=== PATIENT | female | born 1940 | race Caucasian/White ===

== ENCOUNTER 2016-10-07 10:57 | Emergency (ER) | payer MEDICARE ==
[2016-10-07 11:01] VITALS: BP 148/65
[2016-10-07] MEDS ORDERED: DOXYcycline CAP(*) 100 MG PO ONE (12:09)
--- NOTE | 2016-10-07 12:14 | ED ---
Bite Injury/Animal - HPI Summary HPI Summary: Patient presents with a tick on her mid back. She thinks it must have become attached yesterday [place] She noticed today when she got dressed and then her saw that it was engorged. She has mild redness on her back. No drainage or streaking. - History of Current Complaint Chief Complaint: EDGeneral Stated Complaint: TICK Time Seen by Provider: 10/07/16 11:02 Hx Obtained From: Patient, Family/Saw Maker Onset of Injury: Happened hours ago Type of Bite: Wild Animal - tick Hx of Bite: Unprovoked Severity Currently: Mild Pain Intensity: 0 Aggravating Factor(s): Nothing Alleviating Factor(s): Nothing Associated Signs And Symptoms: Positive: Negative - Risk Factors Infection/Sepsis Risk Factors: Negative - Allergies/Home Medications Allergies/Adverse Reactions: Allergies Allergy/AdvReac Type Severity Reaction Status Date / Time Codeine AdvReac Intermediate nausea, Verified 10/07/16 11:27 stomach upset PMH/Surg Hx/FS Hx/Imm Hx Endocrine/Hematology History: Denies: Hx Diabetes - no active or history, Other Endocrine/Hematological Disorders - Pt. does not have DM, previous entry in error Cardiovascular History: Reports: Hx Angina Denies: Hx Coronary Artery Disease, Hx Hypercholesterolemia, Hx Hypertension , Hx Myocardial Infarction, Hx Valvular Heart Disease Respiratory History: Denies: Hx Asthma, Hx Chronic Obstructive Pulmonary Disease (COPD) Sensory History: Reports: Hx Contacts or Glasses Opthamlomology History: Reports: Hx Contacts or Glasses - Cancer History Hx Chemotherapy: No Hx Radiation Therapy: No - Surgical History Surgery Procedure, Year, and Place: tonsillectomy. tubal ligation. hysterectomy Infectious Disease History: No Infectious Disease History: Denies: Traveled Outside the [place] in Last 30 Days - Family History Known Family History: Positive: None - Social History Occupation: Retired Lives: With Family Alcohol Use: None Substance Use Type: Reports: None Smoking Status (MU): Never Smoked Tobacco Review of Systems Positive: Other - pea size are of erythema with embedded tick All Other Systems Reviewed And Are Negative: Yes Physical Exam Triage Information Reviewed: Yes Vital Signs On Initial Exam: Initial Vitals Temp Pulse Resp BP Pulse Ox 98.2 F 69 18 148/65 99 10/07/16 10:59 10/07/16 10:59 10/07/16 10:59 10/07/16 10:59 10/07/16 10:59 Vital Signs Reviewed: Yes Appearance: Positive: Well-Appearing, No Pain Distress, Thin Skin: Positive: Warm, Skin Color Reflects Adequate Perfusion, Dry, Tender, Soft , Erythema @ - pea size area of erthema with embedded tick that is minimally engorged. Head/Face: Positive: Normal Head/Face Inspection Eyes: Positive: EOMI, TOREY, Conjunctiva Clear ENT: Positive: Hearing grossly normal Respiratory/Lung Sounds: Positive: Breath Sounds Present Cardiovascular: Positive: RRR Musculoskeletal: Negative: Edema Left, Edema Right Neurological: Positive: Sensory/Motor Intact, Alert, Oriented to Person Place, Time, NV Bundle Intact Distally, Normal Gait Psychiatric: Positive: Affect/Mood Appropriate AVPU Assessment: Alert Procedures - Procedure Summary Procedure Summary: The tick was grasped with tweezers, and twisted in a circular direction until it released intact. Patient tolerated well. Diagnostics - Vital Signs Vital Signs Temp Pulse Resp BP Pulse Ox 10/07/16 11:25 98.2 F 69 18 148/65 99 10/07/16 10:59 98.2 F 69 18 148/65 99 - Laboratory Lab Statement: Any lab studies that have been ordered have been reviewed, and results considered in the medical decision making process. Bite Injury Course/Dx - Diagnoses Differential Diagnosis/HQI/PQRI: Positive: Envenomation, Puncture, Superficial Infection, Other Provider Diagnosis: Tick bite of back Discharge - Discharge Plan Condition: Stable Disposition: HOME Patient Education Materials: Tick Bite (ED), Lyme Disease (ED) Referrals: Ruben Caldera MD [Primary Care Provider] - Additional Instructions: Please follow-up with your primary care provider if symptoms begin. Return to the emergency department as needed.
== END 2016-10-07 12:29 | disposition home or self-care (01) ==
LOC: ED 10:57
DX: S20.469A Insect bite (nonvenomous) of unspecified back wall of thorax, initial encounter (principal); W57.XXXA Bitten or stung by nonvenomous insect and other nonvenomous arthropods, initial encounter; Y93.9 Activity, unspecified; Y92.9 Unspecified place or not applicable; Y99.9 Unspecified external cause status
CPT/HCPCS: 99281; A9270-GY

== ENCOUNTER 2016-11-15 17:22 | Emergency (ER) | payer MEDICARE ==
[2016-11-15 17:34] VITALS: BP 141/74
--- NOTE | 2016-11-15 18:01 | UC ---
Skin Complaint HPI - HPI Summary HPI Summary: Patient presents to with erythematous area over the left dorsum of the upper forearm. She states she sustained an insect bite yesterday and has been itching the area. Denies pruritis currently. The area is blanchable with small red blood vessels surrounding without warmth or cellulitis and area is not well demarcated. Area seems to be a localized reaction of breaks in the skin from itching. Denies health problems. - History of Current Complaint Chief Complaint: UCSkin Time Seen by Provider: 11/15/16 17:36 Stated Complaint: BUG BITE Hx Obtained From: Patient ?: No Onset/Duration: Sudden Onset Skin Exposure Onset/Duration: Hours Ago Timing: Constant Onset Severity: Mild Current Severity: Mild Pain Intensity: 0 Pain Scale Used: 0-10 Numeric Location: Discrete Character: Redness Aggravating: Nothing Alleviating: Nothing Associated Signs & Symptoms: Positive: Nausea Related History: Possible Reaction to: Insect - Allergy/Home Medications Allergies/Adverse Reactions: Allergies Allergy/AdvReac Type Severity Reaction Status Date / Time Codeine AdvReac Intermediate nausea, Verified 11/15/16 17:34 stomach upset Home Medications: Home Medications NK [No Home Medications Reported] 11/15/16 [History Confirmed 11/15/16] Review of Systems Constitutional: Negative Skin: Other - blanchable 3X3 erythematous area over dorsum of the upper forearm without pruritis or warmth ENT: Negative Respiratory: Negative Cardiovascular: Negative Neurovascular: Negative Musculoskeletal: Negative Neurological: Negative Psychological: Negative All Other Systems Reviewed And Are Negative: Yes PMH/Surg Hx/FS Hx/Imm Hx Previously Healthy: Yes - Surgical History Surgical History: Yes Surgery Procedure, Year, and Place: tonsillectomy. tubal ligation. hysterectomy - Family History Known Family History: Positive: None - Social History Occupation: Retired Lives: With Family Alcohol Use: Rare Substance Use Type: None Smoking Status (MU): Never Smoked Tobacco Have You Smoked in the Last Year: No - Immunization History Most Recent Influenza Vaccination: 02/2013 Most Recent Tetanus Shot: 04/05/13 Most Recent Pneumonia Vaccination: <10yrs ago Physical Exam Triage Information Reviewed: Yes Appearance: Well-Appearing, No Pain Distress, Well-Nourished Vital Signs: Initial Vital Signs Temp 97.8 F 11/15/16 17:30 Pulse 56 11/15/16 17:30 Resp 18 11/15/16 17:30 BP 141/74 11/15/16 17:30 Pulse Ox 100 11/15/16 17:30 Vital Signs Reviewed: Yes Eye Exam: Normal Eyes: Positive: Conjunctiva Clear Neck exam: Normal Neck: Positive: Supple, No Lymphadenopathy Respiratory Exam: Normal Respiratory: Positive: Chest non-tender Cardiovascular Exam: Normal Cardiovascular: Positive: RRR Musculoskeletal Exam: Normal Musculoskeletal: Positive: Strength Intact Neurological Exam: Normal Neurological: Positive: Alert Psychological: Positive: Normal Response To Family Skin: Positive: Other - blanchable 3X3 erythematous area over dorsum of the upper forearm without pruritis or warmth Course/Dx - Course Course Of Treatment: blanchable 3X3 erythematous area over dorsum of the upper forearm without pruritis or warmth. Likely a localized reaction from itching the area previously and breaking blood vessels under the skin. Treatment options discussed. Patient OK with discharge and agrees with plan. - Differential Diagnoses - Skin Complaint Differential Diagnoses: Contact Dermatitis, Drug Rash, Poison Fleischmanns, Urticaria - Diagnoses Provider Diagnoses: Broken Blood Vessels Discharge - Discharge Plan Condition: Stable Disposition: HOME Patient Education Materials: Cellulitis (ED) Referrals: Ruben Caldera MD [Primary Care Provider] - Additional Instructions: I am not diagnosing you with cellulitis (skin infection) - just want you to have information. Return if you have streaking, warmth or wrosening redness around the wound.
== END 2016-11-15 18:05 | disposition home or self-care (01) ==
LOC: UCEAST 17:22
DX: S55.20 Unspecified injury of vein at forearm level (principal); X58.XXXA Exposure to other specified factors, initial encounter
CPT/HCPCS: 99211; G0463

== ENCOUNTER 2017-04-16 11:14 | Emergency (ER) | payer MEDICARE ==
[2017-04-16 13:09] VITALS: BP 156/68
[2017-04-16] MEDS ORDERED: DOXYcycline CAP(*) 100 MG PO ONE (13:52)
--- NOTE | 2017-04-16 13:52 | UC ---
Skin Complaint HPI - HPI Summary HPI Summary: Tick on center of chest ---has been there for at least 24 hours - History of Current Complaint Chief Complaint: UCSkin Time Seen by Provider: 04/16/17 13:38 Stated Complaint: TICK BITE Hx Obtained From: Patient ?: No Onset/Duration: Sudden Onset, Lasting Days - 1, Still Present Skin Exposure Onset/Duration: Days Ago - 1-2 Timing: Constant Onset Severity: Mild Current Severity: Mild Location: Discrete Aggravating Factor(s): Nothing Alleviating Factor(s): Nothing Associated Signs & Symptoms: Positive: Negative Related History: Insect Bite/Sting - Allergy/Home Medications Allergies/Adverse Reactions: Allergies Allergy/AdvReac Type Severity Reaction Status Date / Time Codeine AdvReac Intermediate nausea, Verified 04/16/17 11:22 stomach upset Review of Systems Constitutional: Negative Skin: Rash - slight erythma around tick Eyes: Negative ENT: Negative Respiratory: Negative Cardiovascular: Negative Gastrointestinal: Negative Genitourinary: Negative Motor: Negative Neurovascular: Negative Musculoskeletal: Negative Neurological: Negative Psychological: Negative Is Patient Immunocompromised?: No All Other Systems Reviewed And Are Negative: Yes PMH/Surg Hx/FS Hx/Imm Hx Previously Healthy: Yes - Surgical History Surgical History: Yes Surgery Procedure, Year, and Place: tonsillectomy. tubal ligation. hysterectomy - Family History Known Family History: Positive: None - Social History Occupation: Retired Lives: With Family Alcohol Use: Rare Substance Use Type: None Smoking Status (MU): Never Smoked Tobacco Have You Smoked in the Last Year: No - Immunization History Most Recent Influenza Vaccination: 1017 Most Recent Tetanus Shot: 04/05/13 Most Recent Pneumonia Vaccination: <10yrs ago Physical Exam Triage Information Reviewed: Yes Appearance: Well-Appearing, No Pain Distress, Well-Nourished Vital Signs: Initial Vital Signs Temp 98.7 F 04/16/17 11:19 Pulse 67 04/16/17 11:19 Resp 16 04/16/17 11:19 BP 130/58 04/16/17 11:19 Pulse Ox 100 04/16/17 11:19 Vital Signs Reviewed: Yes Eye Exam: Normal Eyes: Positive: Conjunctiva Clear ENT Exam: Normal ENT: Positive: Normal ENT inspection, Hearing grossly normal, Pharynx normal. Negative: Trismus, Muffled voice, Hoarse voice Dental Exam: Normal Neck exam: Normal Neck: Positive: Supple, Nontender, No Lymphadenopathy Respiratory Exam: Normal Respiratory: Positive: Chest non-tender, No respiratory distress, No accessory muscle use Cardiovascular Exam: Normal Cardiovascular: Positive: RRR, Pulses Normal, Brisk Capillary Refill Musculoskeletal Exam: Normal Musculoskeletal: Positive: Strength Intact, ROM Intact, No Edema Neurological Exam: Normal Neurological: Positive: Alert, Muscle Tone Normal Psychological Exam: Normal Skin Exam: Normal Skin: Positive: Other - Slight erythema around tick Re-Evaluation - Re-Evaluation First Eval Change: Improved - Tick removed alive and intact Course/Dx - Course Course Of Treatment: gentle soap and water wash, doxycycline times one dose now follow Blood pressure with pcp - Diagnoses Provider Diagnoses: Elevated Blood pressure with out diagnosis of hypertension, Tick removal with Lyme PEP Discharge - Discharge Plan Condition: Stable Disposition: HOME Patient Education Materials: Tick Bite (ED), Hypertension (ED) Referrals: Ruben Caldera MD [Primary Care Provider] - 2 Weeks
== END 2017-04-16 14:00 | disposition home or self-care (01) ==
LOC: UCEAST 11:14
DX: S20.369A Insect bite (nonvenomous) of unspecified front wall of thorax, initial encounter (principal); W57.XXXA Bitten or stung by nonvenomous insect and other nonvenomous arthropods, initial encounter; Y93.9 Activity, unspecified; Y92.9 Unspecified place or not applicable; Y99.9 Unspecified external cause status; R03.0 Elevated blood-pressure reading, without diagnosis of hypertension
CPT/HCPCS: 99212; A9270-GY; G0463

== ENCOUNTER 2017-06-22 14:03 | Emergency (ER) | payer MEDICARE ==
[2017-06-22 14:29] VITALS: BP 124/61
[2017-06-22] MEDS ORDERED: DOXYcycline CAP(*) 100 MG PO ONE (15:53)
--- NOTE | 2017-06-22 15:53 | UC ---
Skin Complaint HPI - HPI Summary HPI Summary: Patient presents with an unremarkable past medical history. She states she woke up with morning and found a round red smooth area on her left lower leg. SHe denies any tick , it is not itchy, or painful. She comes in for evaluation. It is approximate 1.5 cm in diameter. She offers no other concerns or complaints. - History of Current Complaint Chief Complaint: UCLowerExtremity Time Seen by Provider: 06/22/17 15:38 Stated Complaint: INSECT BITE Hx Obtained From: Patient Onset/Duration: Sudden Onset, Lasting Hours Skin Exposure Onset/Duration: Hours Ago Timing: Constant Pain Intensity: 0 Location: Discrete - lle Aggravating Factor(s): Nothing Alleviating Factor(s): Nothing Associated Signs & Symptoms: Positive: Negative - Allergy/Home Medications Allergies/Adverse Reactions: Allergies Allergy/AdvReac Type Severity Reaction Status Date / Time MS Codeine [Codeine] AdvReac Intermediate nausea, Verified 04/16/17 11:22 stomach upset Review of Systems Constitutional: Negative Skin: Negative Eyes: Negative ENT: Negative Respiratory: Negative Cardiovascular: Negative Gastrointestinal: Negative Genitourinary: Negative Motor: Negative Neurovascular: Negative Musculoskeletal: Negative Neurological: Negative Psychological: Negative Is Patient Immunocompromised?: No All Other Systems Reviewed And Are Negative: Yes PMH/Surg Hx/FS Hx/Imm Hx Previously Healthy: Yes - Surgical History Surgical History: Yes Surgery Procedure, Year, and Place: tonsillectomy. tubal ligation. hysterectomy - Family History Known Family History: Positive: None - Social History Occupation: Retired Lives: With Family Alcohol Use: Rare Substance Use Type: None Smoking Status (MU): Never Smoked Tobacco Have You Smoked in the Last Year: No - Immunization History Most Recent Influenza Vaccination: 1017 Most Recent Tetanus Shot: 04/05/13 Most Recent Pneumonia Vaccination: <10yrs ago Physical Exam Triage Information Reviewed: Yes Appearance: Well-Appearing Vital Signs: Initial Vital Signs Temp 97.8 F 06/22/17 14:25 Pulse 71 06/22/17 14:25 Resp 16 06/22/17 14:25 BP 124/61 06/22/17 14:25 Pulse Ox 100 06/22/17 14:25 Vital Signs Reviewed: Yes Eye Exam: Normal ENT Exam: Normal Neck exam: Normal Neck: Positive: 1 Respiratory Exam: Normal Cardiovascular Exam: Normal Abdominal Exam: Normal Musculoskeletal Exam: Normal Neurological Exam: Normal Psychological Exam: Normal Skin Exam: Other - 1.5 cm macular circular area on the LLE, no foreign body present, no tick bite. nontender, without visicle. Course/Dx - Course Course Of Treatment: Patient presents with a round red macular blanchable area on her leg. No tick bite, no evidence of vesicles, and it is not painful. This most likley is a spider bite, but it is not infected at this time. There is no flucuance, or indurations. the patient will be tra[facility]leing to [facility] tom[facility]rw therefore I have RC antibiotics for her to take in case it starts to show signs of infection. I also told her that she could trial a course of hyrocortisone cream and see if that helps. I also told her that is it begins to look worse to start the antibiotics and seek re-evaluations. In addition erring on the side of caution I gave doxy 200 mg one time in the department as it does resemble a tick bite. She verbalized understanding of and in agreement with the discharge plan. - Differential Diagnoses - Skin Complaint Differential Diagnoses: Other - insect bite - Diagnoses Provider Diagnoses: insect bite Discharge - Discharge Plan Condition: Stable Disposition: HOME Prescriptions: Cephalexin CAP* [Keflex CAP*] 500 mg PO QID #40 cap Patient Education Materials: Insect Bite or Sting (ED) Referrals: Ruben Caldera MD [Primary Care Provider] -
== END 2017-06-22 16:00 | disposition home or self-care (01) ==
LOC: UCEAST 14:03
DX: S80.862A Insect bite (nonvenomous), left lower leg, initial encounter (principal); W57.XXXA Bitten or stung by nonvenomous insect and other nonvenomous arthropods, initial encounter; Y92.9 Unspecified place or not applicable
CPT/HCPCS: 99212; A9270-GY; G0463

== ENCOUNTER 2017-08-21 09:43 | Emergency (ER) | payer MEDICARE ==
[2017-08-21 09:53] VITALS: BP 137/61
--- NOTE | 2017-08-21 10:08 | UC ---
Eye Complaint HPI - History of Current Complaint Chief Complaint: Carlito Stated Complaint: EYE IRRITATION Time Seen by Provider: 08/21/17 10:00 Hx Obtained From: Patient Timing: Days Severity Initially: Mild Severity Currently: Moderate Pain Intensity: 0 Location of Injury: Eye Lid (lower), Periorbital Character: Dull Aggravating Factor(s): Nothing Alleviating Factor(s): Nothing - Risk Factors Penetrating Injury Risk Factor: Negative Globe Rupture Risk Factors: Negative Acute Glaucoma Risk Factors: Negative Optic Artery Occlusion Risk Factors: Negative - Allergies/Home Medications Allergies/Adverse Reactions: Allergies Allergy/AdvReac Type Severity Reaction Status Date / Time codeine Allergy stomach Verified 08/21/17 09:44 upset PMH/Surg Hx/FS Hx/Imm Hx Previously Healthy: Yes - Surgical History Surgical History: Yes Surgery Procedure, Year, and Place: tonsillectomy. tubal ligation. hysterectomy - Family History Known Family History: Positive: None - Social History Alcohol Use: Rare Substance Use Type: None Smoking Status (MU): Never Smoked Tobacco Have You Smoked in the Last Year: No - Immunization History Most Recent Influenza Vaccination: 1017 Most Recent Tetanus Shot: 04/05/13 Most Recent Pneumonia Vaccination: <10yrs ago Review of Systems Eyes: Other - eyelid redness All Other Systems Reviewed And Are Negative: Yes Physical Exam Triage Information Reviewed: Yes Appearance: Well-Appearing, No Pain Distress, Well-Nourished Vital Signs: Initial Vital Signs Temp 97 F 08/21/17 09:50 Pulse 76 08/21/17 09:50 Resp 16 08/21/17 09:50 BP 137/61 08/21/17 09:50 Pulse Ox 100 08/21/17 09:50 Vital Signs Reviewed: Yes Eyes: Positive: Conjunctiva Clear, Other: - mild soft tissue swelling and erythema on lower right eyelid. ANA, no conjunctival injection, no eye discharge ENT: Positive: Pharynx normal, TMs normal, Uvula midline Neck: Positive: Supple, Nontender, No Lymphadenopathy Respiratory: Positive: Chest non-tender, Lungs clear, Normal breath sounds Cardiovascular: Positive: RRR, No Murmur, Pulses Normal, Brisk Capillary Refill Eye Complaint Course/Dx - Course Course Of Treatment: start medications as prescribed, hand hygiene, oral hydration, follow up with PCP, return if antibiotics do not produce improvement of symptoms within 24-36 hr - Differential Dx/Diagnosis Provider Diagnoses: Cellulitis lower eyelid Discharge - Sign-Out/Discharge Documenting (check all that apply): Discharge - Discharge Plan Condition: Stable Disposition: HOME Patient Education Materials: Blepharitis (ED) Referrals: Ruben Caldera MD [Primary Care Provider] - - Billing Disposition and Condition Condition: STABLE Disposition: HOME
== END 2017-08-21 10:36 | disposition home or self-care (01) ==
LOC: UCEAST 09:43
DX: H00.032 Abscess of right lower eyelid (principal); Z88.5 Allergy status to narcotic agent
CPT/HCPCS: 99212; G0463

== ENCOUNTER 2017-11-17 18:14 | Emergency (ER) | payer MEDICARE ==
[2017-11-17 18:40] VITALS: BP 151/70
[2017-11-17] MEDS ORDERED: DOXYcycline CAP(*) 100 MG PO ONE (19:07)
--- NOTE | 2017-11-17 19:11 | UC ---
Harmony Vogel Elizabeth, scribed for Val Loyola MD on 11/17/17 at 1852 . Skin Complaint HPI - HPI Summary HPI Summary: This patient is a 77 year old F presenting to [facility] with a chief complaint of a bug bite on her chest since this afternoon. The patient reports that she found a tick on the collar of her shirt after she came in from working in the yard and discovered a bite on her chest. The patient brought the tick she found in a bag but it is not engorged. The patient rates the pain 0/10 in severity. Symptoms aggravated by nothing. Symptoms alleviated by nothing. Patient denies pruritus. Pt states she is anxious and concerned about Lyme disease. The patient has previously been given prophylaxis for lyme disease (1 time dose) 2x in the past year. Reports tdap utd Pt is not immunocompromised Pts medications reviewed this visit - History of Current Complaint Time Seen by Provider: 11/17/17 18:19 Stated Complaint: TICK BITE Hx Obtained From: Patient Onset/Duration: Sudden Onset, Lasting Hours, Still Present Skin Exposure Onset/Duration: Hours Ago Onset Severity: Mild Current Severity: None Pain Intensity: 0 Pain Scale Used: 0-10 Numeric Location: Other - chest Character: Redness Aggravating Factor(s): Nothing Alleviating Factor(s): Nothing Associated Signs & Symptoms: Positive: Negative Related History: Insect Bite/Sting - Allergy/Home Medications Allergies/Adverse Reactions: Allergies Allergy/AdvReac Type Severity Reaction Status Date / Time codeine Allergy stomach Verified 11/17/17 18:39 upset Review of Systems Skin: Other - bug bite on chest ENT: Negative - negative epistaxis Respiratory: Negative - negative cough Gastrointestinal: Negative - negative vomiting All Other Systems Reviewed And Are Negative: Yes PMH/Surg Hx/FS Hx/Imm Hx Previously Healthy: Yes - Surgical History Surgical History: Yes Surgery Procedure, Year, and Place: tonsillectomy. tubal ligation. hysterectomy - Family History Known Family History: Positive: Other - Parkinson's Disease Family History: Parkinson's Disease - Social History Lives: With Family Alcohol Use: Rare Substance Use Type: None Smoking Status (MU): Never Smoked Tobacco Have You Smoked in the Last Year: No - Immunization History Most Recent Influenza Vaccination: 1017 Most Recent Tetanus Shot: 04/05/13 Most Recent Pneumonia Vaccination: <10yrs ago Physical Exam - Summary Physical Exam Summary: Vital Signs Reviewed: Yes A+Ox3, no distress Eyes: Conjunctiva Clear ENT: Hearing grossly normal neck: supple Respiratory: Positive: No respiratory distress, No accessory muscle use CTA throughout no w/r Cardiovascular: skin color reflect adequate perfusion RRR nl s1, s2 no m/r Musculoskeletal Exam: MARTINES x 4 without difficulty Neurological: Positive: Alert, ambulatory without difficulty Psychological: Positive: Normal Response To Family Skin: Positive: no rash, no ecchymosis, left anterior chest wall pt with 2mm area of erythema - slightly raised - c/w insect bite no drainage, no fluctance non pruritic Triage Information Reviewed: Yes Vital Signs: Initial Vital Signs Temp 99.4 F 11/17/17 18:32 Pulse 73 11/17/17 18:32 Resp 18 11/17/17 18:32 BP 151/70 11/17/17 18:32 Pulse Ox 100 11/17/17 18:32 Course/Dx - Course Course Of Treatment: Pt presents with a tick that she found in her clothing after working outside. Pt with small insect appearing bite on left anterior chest. I had a long discussion with pt regarding lyme dx and approach to tick exposure. After education, pt requesting Doxy prophylaxis - will give 1 time dose. pt has a tick remover at home. d/w pt regarding localinsect bite wound care. Pt's blood pressure mildly elevated -recommend PCP fSheronu - Diagnoses Provider Diagnoses: tick exposure. insect bite Discharge - Sign-Out/Discharge Documenting (check all that apply): Discharge/Admit/Transfer - Discharge Plan Condition: Stable Disposition: HOME Discharge Disposition Comment: discharge home Patient Education Materials: Insect Bite or Sting (ED) Referrals: Ruben Caldera MD [Primary Care Provider] - Additional Instructions: The provider that evaluated you agrees that the insect you brought was a tick The are of reddenss on your chest wall does not appear infected or concerning After discussion, you were given the 1 time prophyalatic treatment for Lyme disease If you have any questions or concerns it is recommended you contact for follow- up - Billing Disposition and Condition Condition: STABLE Disposition: Home The documentation as recorded by the Harmony mckee Elizabeth accurately reflects the service I personally performed and the decisions made by me, Val Loyola MD.
== END 2017-11-17 19:30 | disposition home or self-care (01) ==
LOC: UCEAST 18:14
DX: S20.369A Insect bite (nonvenomous) of unspecified front wall of thorax, initial encounter (principal); W57.XXXA Bitten or stung by nonvenomous insect and other nonvenomous arthropods, initial encounter; Y93.9 Activity, unspecified; Y99.9 Unspecified external cause status
CPT/HCPCS: 99211; A9270-GY; G0463

== ENCOUNTER 2018-04-18 09:34 | Emergency (ER) | payer MEDICARE ==
[2018-04-18 09:41] VITALS: BP 148/62
--- NOTE | 2018-04-18 10:15 | UC ---
Skin Complaint HPI - HPI Summary HPI Summary: Pt presents with c/o gradual onset of "itchy" skin, on left side lower back that began 1 week ago. Pt reports that she was visiting family and staying at a hotel for days and rash began after that. Pt has hx of shingles. Pt denies pain with rash. - History of Current Complaint Chief Complaint: UCRas Time Seen by Provider: 04/18/18 10:08 Stated Complaint: RASH Hx Obtained From: Patient ?: No Onset/Duration: Gradual Onset, Lasting Days, Still Present Skin Exposure Onset/Duration: Days Ago Timing: Constant Onset Severity: Mild Current Severity: Mild Pain Intensity: 4 Location: Discrete - right side low back Character: Pruritus, Redness Aggravating Factor(s): Nothing Alleviating Factor(s): Unknown Associated Signs & Symptoms: Positive: Rash - Allergy/Home Medications Allergies/Adverse Reactions: Allergies Allergy/AdvReac Type Severity Reaction Status Date / Time codeine Allergy stomach Verified 04/18/18 09:41 upset Review of Systems All Other Systems Reviewed And Are Negative: Yes Constitutional: Positive: Negative Skin: Positive: Rash Eyes: Positive: Negative ENT: Positive: Negative Respiratory: Positive: Negative Cardiovascular: Positive: Negative Gastrointestinal: Positive: Negative Genitourinary: Positive: Negative Motor: Positive: Negative Neurovascular: Positive: Negative Musculoskeletal: Positive: Negative Neurological: Positive: Negative Psychological: Positive: Negative Is Patient Immunocompromised?: No PMH/Surg Hx/FS Hx/Imm Hx Previously Healthy: Yes - Surgical History Surgical History: Yes Surgery Procedure, Year, and Place: tonsillectomy. tubal ligation. hysterectomy - Family History Known Family History: Positive: Cardiac Disease, Other - Parkinson's Disease Family History: Parkinson's Disease - Social History Occupation: Retired Lives: With Family Alcohol Use: Rare Substance Use Type: None Smoking Status (MU): Never Smoked Tobacco Have You Smoked in the Last Year: No - Immunization History Most Recent Influenza Vaccination: 1017 Most Recent Tetanus Shot: 04/05/13 Most Recent Pneumonia Vaccination: <10yrs ago Physical Exam Triage Information Reviewed: Yes Appearance: Well-Appearing Vital Signs: Initial Vital Signs Temp 97.5 F 04/18/18 09:35 Pulse 76 04/18/18 09:35 Resp 18 04/18/18 09:35 BP 148/62 04/18/18 09:35 Pulse Ox 100 04/18/18 09:35 Vital Signs Reviewed: Yes Eye Exam: Normal ENT: Positive: Hearing grossly normal Dental Exam: Normal Neck exam: Normal Respiratory: Positive: No respiratory distress Musculoskeletal Exam: Normal Neurological Exam: Normal Psychological Exam: Normal Skin: Positive: Rashes - pin prick, mild erythematous, pin prick, slightly raised rash, right lower back ~ 10 cm X 10 cm. Course/Dx - Differential Diagnoses - Skin Complaint Differential Diagnoses: Contact Dermatitis, Varicella Zoster - Diagnoses Provider Diagnosis: Contact dermatitis Discharge - Sign-Out/Discharge Documenting (check all that apply): Patient Departure All imaging exams completed and their final reports reviewed: No Studies - Discharge Plan Condition: Stable Disposition: HOME Prescriptions: Triamcinolone 0.1% CREAM (NF) [Kenalog 0.1% Cream (NF)] 1 applic TOPICAL Q12H # 1 tube Patient Education Materials: Antihistamine (By mouth), Contact Dermatitis (ED) Referrals: Rubne Caldera MD [Primary Care Provider] - 3 Days - Billing Disposition and Condition Condition: STABLE Disposition: Home
== END 2018-04-18 10:27 | disposition home or self-care (01) ==
LOC: UCEAST 09:34
DX: L25.9 Unspecified contact dermatitis, unspecified cause (principal); Z88.5 Allergy status to narcotic agent
CPT/HCPCS: 99212; G0463